=== PATIENT | male | born 2000 | race African-American/Black ===

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

== ENCOUNTER 2022-10-15 22:51 | Emergency (ER) | payer BC ==
[~2022-10-15] VITALS: Ht 172.7 cm; Wt 59.0 kg
[2022-10-15 23:20] VITALS: BP 122/83
[2022-10-16] MEDS ORDERED: ONDANSETRON 4MG ODT PO ONE (01:45)
[2022-10-16 02:10] LABS: CHLORIDE 102 mEq/L (98-107)
[2022-10-16] MEDS ORDERED: ONDA4TAB11 PO (02:27)
[2022-10-16 05:37] LABS: BASOPHILS % 0.3 % (0.0-2.0); EOSINOPHILS % 2.2 % (0.0-5.0); HEMATOCRIT. 42.5 % (42.0-52.0); HEMOGLOBIN. 14.3 g/dL (14.0-18.0); LYMPHOCYTES % 14.4 % (20.0-50.0); MEAN CORPUSCULAR HEMOGLOBIN 30.6 pg (28.0-32.0); MEAN PLATELET VOLUME 8.6 fl (7.4-10.4); MONOCYTES % 8.8 % (2.0-8.0); NEUTROPHILS % 74.3 % (40.0-76.0); PLATELET 304 x1000/uL (130-400); RED BLOOD CELL COUNT 4.67 mill/uL (4.7-6.1); RED CELL DISTRIBUTION WIDTH 12.7 % (11.6-14.6)
== END 2022-10-16 03:30 | disposition home or self-care (01) ==
LOC: ER 22:51
DX: R11.2 Nausea with vomiting, unspecified (principal); J02.9 Acute pharyngitis, unspecified; J45.909 Unspecified asthma, uncomplicated
CPT/HCPCS: 36415; 80053; 83690; 85025; 99283; Q0162

== ENCOUNTER 2023-03-30 16:49 | Emergency (ER) | payer BC ==
[~2023-03-30] VITALS: Ht 170.2 cm; Wt 65.0 kg
[~2023-03-30 16:49] MED LIST: ONDA4TAB11 PO
[2023-03-30 17:01] VITALS: TEMP 98; O2SAT 99
[2023-03-30] MEDS ORDERED: DIPHENHYDRAMINE 25MG CAPSULE PO ONE (18:00)
[2023-03-30] MEDS ORDERED: METHYLPREDNISOLONE SOD SUCC 40MG VIAL IV ONE (18:00)
[2023-03-30] MEDS ORDERED: DIPHENHYDRAMINE 25MG CAPSULE PO NR (18:00)
[2023-03-30] MEDS ORDERED: METHYLPREDNISOLONE SOD SUCC 125MG/2ML (ACT-O-VIAL) IV NR (18:00)
[2023-03-30] MEDS ORDERED: TRIAMCINOLONE ACETONIDE 0.1% CREAM 15GM TOP SCH ×3 (18:15→20:00)
[2023-03-30] MEDS ORDERED: SODIUM CHLORIDE 0.9% 1,000 ML IV ONE (20:30)
[2023-03-30] MEDS ORDERED: P50 MT (21:01)
[2023-03-30] MEDS ORDERED: TC025C15 TP (21:01)
[2023-03-30 21:15] VITALS: BP 115/79; PULSE 83; RESP 15
== END 2023-03-30 21:32 | disposition home or self-care (01) ==
LOC: ER 16:49
DX: R21 Rash and other nonspecific skin eruption (principal); J45.909 Unspecified asthma, uncomplicated
CPT/HCPCS: 96361; 96374; 99284; Q0163; J2930; J7030; Z7610 ×2; C1893; J2920

== ENCOUNTER 2023-06-05 07:15 | Emergency (ER) | payer BC ==
[~2023-06-05] VITALS: Ht 172.7 cm; Wt 64.0 kg
[~2023-06-05 07:15] MED LIST changes: +P50 MT; +TC025C15 TP
[2023-06-05 07:20] VITALS: BP 117/65; PULSE 90; RESP 16; TEMP 98.5; O2SAT 100
[2023-06-05] MEDS ORDERED: PREDNISONE 20MG TABLET PO ONE (07:45)
[2023-06-05] MEDS ORDERED: FAMOTIDINE 20MG TABLET PO SCH (07:45)
[2023-06-05] MEDS ORDERED: DIPHENHYDRAMINE 50MG CAPSULE PO ONE (07:45)
[2023-06-05] MEDS ORDERED: P20 PO (07:47)
[2023-06-05] MEDS ORDERED: TRIA15CR61 TP (07:47)
[2023-06-05] MEDS ORDERED: DIPHENHYDRAMINE 25MG CAPSULE PO NR (08:00)
== END 2023-06-05 09:01 | disposition home or self-care (01) ==
LOC: ER 07:15
DX: T78.40XA Allergy, unspecified, initial encounter (principal); J45.909 Unspecified asthma, uncomplicated; Z79.899 Other long term (current) drug therapy; X58.XXXA Exposure to other specified factors, initial encounter
CPT/HCPCS: 99284; Q0163; J7512

== ENCOUNTER 2023-06-25 10:22 | Emergency (ER) | payer BC ==
[~2023-06-25] VITALS: Ht 172.7 cm; Wt 59.0 kg
[~2023-06-25 10:22] MED LIST changes: +P20 PO; +TRIA15CR61 TP
[2023-06-25 10:41] VITALS: O2SAT 100
[2023-06-25] MEDS ORDERED: PREDNISONE 20MG TABLET PO ONE (11:30)
[2023-06-25] MEDS ORDERED: HYDR453.3 TP (11:33)
[2023-06-25 12:02] VITALS: BP 125/75; PULSE 87; RESP 18; TEMP 97.9
== END 2023-06-25 12:03 | disposition home or self-care (01) ==
LOC: ER 10:22
DX: L30.9 Dermatitis, unspecified (principal); J45.909 Unspecified asthma, uncomplicated; Z79.899 Other long term (current) drug therapy
CPT/HCPCS: 99283; J7512

== ENCOUNTER → 2023-07-02 | Outpatient (CLI) | payer BC ==
[~2023-07-02] MED LIST changes: +HYDR453.3 TP
[2023-07-02 13:28] LABS: CLARITY URINE CLEAR (CLEAR); COLOR URINE DARK YELLOW (YELLOW); GLUCOSE URINE NEGATIVE (NEGATIVE); KETONES URINE TRACE (NEGATIVE); LEUKOCYTE ESTERASE URINE TRACE (NEGATIVE); NITRITE URINE NEGATIVE (NEGATIVE); OCCULT BLOOD URINE NEGATIVE (NEGATIVE); PH URINE 5.5 (4.5-8.0); PROTEIN URINE 1+ (NEGATIVE); SPECIFIC GRAVITY URINE 1.032 (1.005-1.030)
[2023-07-02 13:45] LABS: MUCUS URINE 1+ /lpf (NONE/TRACE); SQUAMOUS EPITHELIAL CELL URINE RARE /lpf (RARE/1+)
[2023-07-02 13:47] LABS: BACTERIA URINE 1+
[2023-07-02 13:48] LABS: RBC URINE NONE SEEN /hpf (0-2)
[2023-07-02 13:49] LABS: HEMATOCRIT. 47.2 % (42.0-52.0); MEAN CORPUSCULAR HEMOGLOBIN 30.6 pg (28.0-32.0); MEAN CORPUSCULAR HGB CONC 33.9 g/dL (31.0-37.0); MEAN CORPUSCULAR VOLUME 90.1 fL (80.0-94.0); MEAN PLATELET VOLUME 8.2 fl (7.4-10.4); PLATELET 350 x1000/uL (130-400); RED BLOOD CELL COUNT 5.25 mill/uL (4.7-6.1); RED CELL DISTRIBUTION WIDTH 13.1 % (11.6-14.6); WHITE BLOOD COUNT 9.7 x1000/uL (4.5-11.0)
[2023-07-02 13:57] LABS: DIFFERENTIAL COMMENT 1
[2023-07-02 14:16] LABS: *AMPHETAMINES SCREEN URINE NEGATIVE (NEGATIVE); *BARBITURATES SCREEN URINE NEGATIVE (NEGATIVE); *BENZODIAZEPINES SCREEN URINE NEGATIVE (NEGATIVE); *COCAINE SCREEN URINE NEGATIVE (NEGATIVE); CANNABINOID URINE SCREEN PRESUMPTIVE POSITIVE (NEGATIVE); ECSTASY MDMA SCREEN URINE NEGATIVE (NEGATIVE); METHADONE URINE SCREEN Neg (NEGATIVE); OPIATES URINE SCREEN NEGATIVE (NEGATIVE); PHENCYCLIDINE URINE SCREEN NEGATIVE (NEGATIVE)
[2023-07-02 14:26] LABS: ERYTHROCYTE SEDIMENTATION RATE 5 mm/hr (0-15)
[2023-07-02 14:46] LABS: ALANINE AMINOTRANSFERASE 20 IU/L (10-49); ASPARTATE AMINOTRANSFERASE 34 IU/L (<34); BILIRUBIN TOTAL 1.1 mg/dL (0.1-1.0); CALCIUM 9.8 mg/dL (8.7-10.4); CARBON DIOXIDE 28 mEq/L (21-32); CHLORIDE 102 mEq/L (98-107); CHOLESTEROL 169 mg/dL (<200); CREATININE 0.9 mg/dL (0.6-1.3); GLUCOSE 82 mg/dL (70-105); HDL CHOLESTEROL 62 mg/dL (>55); IRON 59 ug/dL (65-175); LDL CHOLESTEROL 98 mg/dL (5-100); POTASSIUM 3.7 mEq/L (3.5-5.1); PROTEIN TOTAL 8.2 g/dL (6.0-8.3); SODIUM 140 mEq/L (136-145); THYROID STIMULATING HORMONE 1.75 uIU/mL (0.55-4.78); TOTAL IRON BINDING CAPACITY 277 ug/dl (250-425); TRIGLYCERIDE 37 mg/dL (0-150); UREA NITROGEN BLOOD 17 mg/dL (9-23)
[2023-07-02 14:57] LABS: PLATELET ESTIMATE NORMAL
[2023-07-02 19:43] LABS: FERRITIN 56 ng/mL (22-322); FOLIC ACID (FOLATE) SERUM 14.01 ng/mL (>5.38); HEPATITIS A AB IGM NEGATIVE (Negative); HEPATITIS B CORE AB IGM NEGATIVE (Negative); HEPATITIS B SURFACE ANTIGEN NEGATIVE (Negative); HEPATITIS C AB NON REACTIVE (Neg) (Negative); VITAMIN B12 SERUM 423 pg/mL (211-911)
[2023-07-05 04:07] LABS: CHLAMYDIA TRACHOMATIS NAA Positive (Negative); NEISSERIA GONORRHOEAE NAA Negative (Negative)
[2023-07-06 10:10] LABS: ANTI-NUCLEAR ANTIBODIES DIRECT Negative (Negative)
== END | disposition home or self-care (01) ==
LOC: LAB 11:45
PROVIDERS: ATTEND Internal Medicine Geriatric Medicine
DX: Z00.01 Encounter for general adult medical examination with abnormal findings (principal); Z11.3 Encounter for screening for infections with a predominantly sexual mode of transmission; Z13.220 Encounter for screening for lipoid disorders; N39.0 Urinary tract infection, site not specified
CPT/HCPCS: 36415; 80053; 80061; 80305; 81003; 82306; 82607; 82728; 82746; 83036; 83540; 83550; 84443; 85025; 85651; 86003; 86005; 86038; 86430; 86592; 86705; 86709; 87340; 87491; 87591

== ENCOUNTER → 2023-09-10 | Outpatient (CLI) | payer BC ==
[2023-09-13 08:10] LABS: CHLAMYDIA TRACHOMATIS NAA Positive (Negative); NEISSERIA GONORRHOEAE NAA Negative (Negative)
== END | disposition home or self-care (01) ==
LOC: LAB 14:36
PROVIDERS: ATTEND Internal Medicine Geriatric Medicine
DX: A56.01 Chlamydial cystitis and urethritis (principal)
CPT/HCPCS: 87491; 87591

== ENCOUNTER → 2023-10-29 | Outpatient (CLI) | payer BC ==
[2023-10-29 15:32] LABS: CLARITY URINE CLEAR (CLEAR); COLOR URINE YELLOW (YELLOW); GLUCOSE URINE NEGATIVE (NEGATIVE); KETONES URINE NEGATIVE (NEGATIVE); LEUKOCYTE ESTERASE URINE TRACE (NEGATIVE); NITRITE URINE NEGATIVE (NEGATIVE); OCCULT BLOOD URINE NEGATIVE (NEGATIVE); PROTEIN URINE NEGATIVE (NEGATIVE); SPECIFIC GRAVITY URINE 1.021 (1.005-1.030)
[2023-10-29 16:12] LABS: AMORPHOUS SEDIMENT URINE 1+ /lpf; BACTERIA URINE NONE SEEN; RBC URINE NONE SEEN /hpf (0-2)
== END | disposition home or self-care (01) ==
LOC: LAB 14:36
PROVIDERS: ATTEND Internal Medicine Geriatric Medicine
DX: N39.0 Urinary tract infection, site not specified (principal)
CPT/HCPCS: 81003

== ENCOUNTER → 2023-11-05 | Outpatient (CLI) | payer BC | END | disposition home or self-care (01) | LOC: LAB 15:05 | PROVIDERS: ATTEND Internal Medicine Geriatric Medicine | DX: Z11.3 Encounter for screening for infections with a predominantly sexual mode of transmission (principal); N39.0 Urinary tract infection, site not specified | CPT/HCPCS: 87491; 87591 ==

== ENCOUNTER → 2025-04-28 | Outpatient (CLI) | payer BC ==
[~2025-04-28] MED LIST changes: +ONDA-239 PO; -ONDA4TAB11 PO
[2025-04-28 11:00] LABS: CLARITY URINE CLEAR (CLEAR); COLOR URINE YELLOW (YELLOW); GLUCOSE URINE NEGATIVE (NEGATIVE); KETONES URINE NEGATIVE (NEGATIVE); LEUKOCYTE ESTERASE URINE NEGATIVE (NEGATIVE); NITRITE URINE NEGATIVE (NEGATIVE); OCCULT BLOOD URINE NEGATIVE (NEGATIVE); PH URINE 7.0 (4.5-8.0); PROTEIN URINE NEGATIVE (NEGATIVE); SPECIFIC GRAVITY URINE 1.018 (1.005-1.030); UROBILINOGEN URINE 0.2 E.U./dL (0.2-1.0)
[2025-04-28 13:48] LABS: HEPATITIS A AB IGM NEGATIVE (Negative)
[2025-04-28 13:49] LABS: HEPATITIS B CORE AB IGM NEGATIVE (Negative); HEPATITIS C AB NON REACTIVE (Neg) (Negative)
[2025-05-02 08:08] LABS: CHLAMYDIA TRACHOMATIS NAA Negative (Negative); NEISSERIA GONORRHOEAE NAA Negative (Negative)
== END | disposition home or self-care (01) ==
LOC: LAB 10:30
PROVIDERS: ATTEND Internal Medicine Geriatric Medicine
DX: N39.0 Urinary tract infection, site not specified (principal)
CPT/HCPCS: 36415; 80074; 81003; 86705; 86709; 87340; 87491; 87591